=== PATIENT | female | born 1990 | race Caucasian/White ===

== ENCOUNTER → 2020-09-19 09:33 | Outpatient (BNVA) | payer OTHER, SELFPAY | PROVIDERS: PCP Nurse Practitioner; Visit Provider Emergency Medicine | DX: M79.672 Pain in left foot (principal) | CPT/HCPCS: 73630 ==

== ENCOUNTER 2025-02-06 08:00 | Outpatient (RCR) | payer OTHER, SELFPAY | END 2025-02-18 23:59 | disposition home or self-care (01) | LOC: MPT 08:00 | PROVIDERS: Visit Provider Student in an Organized Health Care Education/Training Program | DX: M76.71 Peroneal tendinitis, right leg (principal) | CPT/HCPCS: 97110; 97140; 97161 ==

== ENCOUNTER 2025-03-13 08:01 | Outpatient (RCR) | payer OTHER, SELFPAY | END 2025-03-19 07:00 | disposition home or self-care (01) | LOC: MPT 08:01 | PROVIDERS: Visit Provider Student in an Organized Health Care Education/Training Program | DX: M76.71 Peroneal tendinitis, right leg (principal) | CPT/HCPCS: 97110; 97140 ==